=== PATIENT | female | born 1945 | race Caucasian/White ===

== ENCOUNTER 2022-03-10 16:38 | Emergency (ER) | payer MEDICARE, SELFPAY ==
[2022-03-10 16:40] VITALS: BP 168/101; PULSE 88; RESP 19; TEMP 36.4; O2SAT 95; BMI 28.7
--- NOTE | 2022-03-10 17:03 | EX.ED.VIS.PS ---
HPI HPI - Psych History of Present Illness Chief Complaint: Mental Health Informant: patient Onset/Context/Timing Onset: Today Conflict: Family Current Severity: Mild Associated Symptoms Associated Symptoms - Psych: Positive for Depressed and Suicidal Thoughts Specific plan (suicidal thought): Drive her car into a building. Narrative Narrative: 76-year-old female history of hypothyroidism after thyroidectomy due to goiter. She moved from [place] where she lived with her daughter to [place] 8 weeks ago. Is staying with friends in a nearby town. Daughter told her today that she is mean and that people do not want a put up with that. She thinks the people she is staying with want her out of their home and she said she is now here and would be homeless. She got depressed. She is trying to process all this. And stated she was suicidal today and she might drive her car into a building. She has no history of psychiatric illness. She denies any prior counseling or admissions. She denies any prior suicide attempts. She denies any recent illness. Prior similar symptoms: No Recent Illness/Hospitalization: No PFSH PFSH Home Medications cholecalciferol (vitamin D3) [Vitamin D3] 1,000 unit PO DAILY 03/10/22 [History Last Taken Unknown] levothyroxine 125 mcg PO DAILY 03/10/22 [History Last Taken Unknown] vitamin E 400 unit PO DAILY 03/10/22 [History Last Taken Unknown] Allergy/AdvReac Type Severity Reaction Status Date / Time No Known Allergies Allergy Verified 03/10/22 16:45 Surgical History H/O thyroidectomy Social History Smoking Status: Never smoker ROS ROS ED ROS Narrative Denies. Review of Systems ROS Unobtainable: Denies due to encephalopathy Constitutional Constitutional ED: Denies fever(s) Eyes Eyes: Denies change in vision ENT ENT ED: Denies ear pain Cardiovascular Cardiovascular: Denies chest pain Respiratory/Chest Respiratory/Chest: Denies dyspnea Gastrointestinal Gastrointestinal: Denies abdominal pain, nausea or vomiting Genitourinary Genitourinary ED: Denies dysuria or hematuria Musculoskeletal Musculoskeletal: Denies myalgias Integumentary Denies rash Neurologic Neurologic: Denies headache(s) Psychiatric Psychiatric: Reports depression and suicidal thoughts Endocrine Endocrinology: Denies polyuria Hematologic/Lymphatic Hematologic/Lymphatic: Denies easy bruising Allergic/Immunologic Allergic/Immunologic ED: Denies urticaria EXAM Physical Exam Narrative Exam Narrative: 68-year-old female no acute distress vital signs stable afebrile. H EENT exam unremarkable. No trauma. Pupils round reactive light. Neck nontender. No trauma. Lungs clear to auscultation. Heart regular rate and rhythm no murmur. Abdomen soft nontender. Moving all 4 extremities. Nontender no deformity. Neurovascular intact. Back nontender. Neurologically she is awake alert knows day, month, year and president. Acting appropriately. At times is tearful. Const Vital Signs: 03/10/22 16:40 03/10/22 18:32 Temperature 97.6 F L Temperature Source Temporal Pulse Rate 88 70 Respiratory Rate 19 H 18 Blood Pressure 168/101 H 143/79 H Blood Pressure Mean 123 100 Pulse Ox 95 98 Oxygen Delivery Method Room Air Room Air Positive well nourished and well developed; Negative for cachectic, contractures or unkempt General Appearance ED: well developed and NAD; Negative for unkempt, cachectic, contractures or pallor Nutritional Appearance: Negative for cachectic HEENT Reports moist mucous membranes normocephalic and atraumatic Eyes PERRL and EOMs intact bilaterally Neck no lymphadenopathy, supple and no JVD General: Negative for tenderness Resp normal respiratory effort and clear to auscultation bilaterally Auscultation: Negative for rales, rhonchi or wheezes Cardio S1 normal heart sound, S2 normal heart sound and no murmurs Rate: regular rate Rhythm: regular rhythm GI non-tender, non-distended and no masses Inspection: Negative for abdominal distention Auscultation: normoactive bowel sounds Palpation: soft; Negative for tender or guarding Back/Spine no CVA tenderness General Back: Negative for CVA tenderness Cervical Spine: Negative for cervical spine tenderness Thoracic Spine / Upper Back: Negative for thoracic spinal tenderness Extremity normal to inspection General Extremety ED: Negative for edema or tenderness General Extremity: Negative for edema Neuro oriented x3 Sensorium / Orientation: alert, oriented to person, oriented to place and oriented to time; Negative for orientation impaired, confused, lethargic or stuporous Motor Exam: strength 5/5 throughout Psych mental status grossly normal, cooperative, affect normal, speech normal, activity/motor behavior normal, denies hallucinations and denies homicidal ideation; Negative for denies suicidal ideation Appearance: grossly normal and appropriate; Negative for unkempt Attitude: calm and engaged Activity / Motor Behavior: appropriate eye contact Speech: normal speech and No slurred Mood & Affect: depressed, sad and tearful Skin General Skin Exam: Negative for jaundice or pallor Lesions: no lesions Rashes: no rashes MDM MDM MDM Narrative Medical decision making narrative: 76-year-old female depressed has a lot of situational issues going on. shell worker evaluated her. Screening labs being obtained. Question is if she is suicidal and need psychiatric placement or can this be done as an outpatient. shell worker spoke with the patient at length and her daughter. Patient will be discharged and can go back to the home that she is currently staying with. Then she will look for a place to stay. She can follow-up with the counseling center. She knows to return if worse. On repeat exam I did speak to her again at 630 and she is comfortable being discharged. Lab Data Attestation: I reviewed the patient's lab results. Lab results narrative: CBC normal. White count 9. H&H 13 and 40. Platelets 280. Chemistries unremarkable gap of 8 BUN 20 creatinine 0.7. Glucose 119 alcohol negative. Tox screen negative. Labs: Laboratory Results - last 24 hr 03/10/22 03/10/22 03/10/22 17:10 17:10 17:10 WBC 9.5 RBC 4.36 Hgb 13.3 Hct 40.6 MCV 93.1 MCH 30.5 MCHC 32.8 RDW Std Deviation 43.9 RDW Coeff of Amaya 12.7 Plt Count 280 MPV 9.7 Immature Gran % (Auto) 0.200 Neut % (Auto) 63.8 Lymph % (Auto) 24.9 [place] % (Auto) 9.9 Eos % (Auto) 0.8 Baso % (Auto) 0.4 Absolute Neuts (auto) 6.1 Absolute Lymphs (auto) 2.37 Nucleated RBC % 0 Sodium 140 Potassium 3.7 Chloride 109 H Carbon Dioxide 23.0 Anion Gap 8 BUN 20 H Creatinine 0.70 Estim Creat Clear Calc 43.40 Est GFR (MDRD) Af Amer 103 Est GFR (MDRD) Non-Af 85 BUN/Creatinine Ratio 28.4 H Glucose 119 H Calcium 9.3 Urine Opiates Screen Urine Methadone Screen Ur Barbiturates Screen Ur Phencyclidine Scrn Ur Amphetamines Screen MDMA (Ecstasy) Screen U Benzodiazepines Scrn Urine Cocaine Screen U Cannabinoids Screen Ur Drug Screen Comment Ethyl Alcohol < 3.0 03/10/22 17:55 WBC RBC Hgb Hct MCV MCH MCHC RDW Std Deviation RDW Coeff of Amaya Plt Count MPV Immature Gran % (Auto) Neut % (Auto) Lymph % (Auto) [place] % (Auto) Eos % (Auto) Baso % (Auto) Absolute Neuts (auto) Absolute Lymphs (auto) Nucleated RBC % Sodium Potassium Chloride Carbon Dioxide Anion Gap BUN Creatinine Estim Creat Clear Calc Est GFR (MDRD) Af Amer Est GFR (MDRD) Non-Af BUN/Creatinine Ratio Glucose Calcium Urine Opiates Screen NEGATIVE Urine Methadone Screen NEGATIVE Ur Barbiturates Screen NEGATIVE Ur Phencyclidine Scrn NEGATIVE Ur Amphetamines Screen NEGATIVE MDMA (Ecstasy) Screen NEGATIVE U Benzodiazepines Scrn NEGATIVE Urine Cocaine Screen NEGATIVE U Cannabinoids Screen NEGATIVE Ur Drug Screen Comment Ethyl Alcohol Discharge Plan Triage Chief Complaint: Mental Health ED Provider: Gilbert Dash Dx/Rx/DC Orders Clinical Impression: Depression Instructions: ED Depression Prescriptions: No Action levothyroxine 125 mcg Tablet 125 mcg PO DAILY RF: 0 vitamin E 400 unit Tablet 400 unit PO DAILY RF: 0 cholecalciferol (vitamin D3) [Vitamin D3] 25 mcg (1,000 unit) Capsule 1,000 unit PO DAILY RF: 0 Primary Care Provider: Care Physician,No Primary Referrals: Counseling,Center [GROUP OF PHYSICIANS] - As soon as possible [facility],Out of [NON-STAFF] - Activity Restrictions/Additional Instructions: Follow-up with the counseling center for possible treatment for depression. Return to the emergency department if you are feeling worse, suicidal or that you may harm yourself or others. Disposition Disposition: Home, Self Care
[2022-03-10 17:17] LABS: Absolute Lymphocyte Count 2.37 X10^3/uL (0.83-4.51); Absolute Neutrophil Count 6.1 X10^3/uL (2.0-7.7); Basophil# 0.04 X10^3/uL; Basophil% 0.4 % (0-1); Eosinophil# 0.08 X10^3/uL; Eosinophils% 0.8 % (0-5); Hematocrit 40.6 % (37-47); Hemoglobin 13.3 g/dL (12.0-15.0); Lymphocyte # 2.37 X10^3/ul (0.83-4.51); Lymphocyte % 24.9 % (19-41); Mean Corp Hgb Conc 32.8 g/dL (32-36); Mean Corpuscular Hgb 30.5 pg (27.0-32.0); Mean Corpuscular Volume 93.1 fL (81-99); Mean Platelet Vol. 9.7 fl (6.2-12.0); Monocyte# 0.94 X10^3/uL; Monocyte% 9.9 % (0-10); NRBC Flagged by Analyzer 0 % (0-5); Neutrophil # 6.07 X10^3/uL (2.7-7.7); Neutrophil % 63.8 % (47-70); Platelet Count 280 K/mm3 (150-450); RBC Distribution Width CV 12.7 % (11.6-14.6); RBC Distribution Width SD 43.9 fl (35.1-43.9); Red Blood Count 4.36 M/mm3 (4.2-5.4); White Blood Count 9.5 K/mm3 (4.4-11.0)
[2022-03-10 18:15] LABS: Alcohol, Blood (Medical)-Serum < 3.0 mg/dL; Anion Gap 8 (5-15); BUN 20 mg/dL (7-18); BUN/Creat Ratio 28.4 RATIO (10-20); Calcium,Total 9.3 mg/dL (8.5-10.1); Chloride 109 mmol/L (98-107); EST Glomerular Filtration Rate 85 mL/min (>60); Est Glom Filt Rate - Afr Amer 103 mL/min (>60); Glucose 119 mg/dL (74-106); Potassium 3.7 mmol/L (3.5-5.1); Sodium Level 140 mmol/L (136-145)
[2022-03-10 18:29] LABS: Amphetamine Urine VISTA NEGATIVE (<1000 ng/mL); Barbiturate Urine VISTA NEGATIVE (< 200 ng/mL); Benzodiazepine Urine VISTA NEGATIVE (< 200 ng/mL); Cocaine Urine VISTA NEGATIVE (< 300 ng/mL); Ecstacy Urine VISTA NEGATIVE (< 500 ng/mL); Methadone Urine VISTA NEGATIVE (< 300 ng/mL); PCP Urine VISTA NEGATIVE (< 25 ng/mL); THC Urine VISTA NEGATIVE (< 50 ng/mL); Vista UDS pH Range 4
[2022-03-10 18:32] VITALS: BP 143/79; PULSE 70; RESP 18; O2SAT 98
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
--- NOTE | 2022-03-10 20:41 | CM.ED ---
MARCELLA Note: MARCELLA called Morenita Santhosh. patient's daughter and left voice mail message. MARCELLA called Morenita Trevizo and updated her that patient was discharged home with resources and encouraged to participate in therapy. Daughter, Morenita Trevizo said I totally agree. Morenita said that she and her ex are coming to [place] next Wednesday to bring patient back to [place]. No further issues or concerns voiced. Michelle COSTELLO
--- NOTE | 2022-03-12 12:31 | CM.ED ---
Late Entry for 03/10/22 MD Dash felt that patient was reacting to the crisis situation (housing) and was safe for discharge Michelle COSTELLO
--- NOTE | 2022-03-12 12:31 | CM.ED ---
SW Note SW called patient's cell phone 3 times. The phone is out of order. Michelle COSTELLO
== END 2022-03-10 18:41 | disposition home or self-care (01) ==
PROVIDERS: Emergency Provider Emergency Medicine; Visit Provider Emergency Medicine
DX: R45.851 Suicidal ideations (principal); F32.A Depression, unspecified; Z63.8 Other specified problems related to primary support group; E03.9 Hypothyroidism, unspecified; Z79.899 Other long term (current) drug therapy; Z79.890 Hormone replacement therapy
CPT/HCPCS: 36415; 80048; 80307; 82077; 85025; 99284